=== PATIENT | male | born 1995 | race Caucasian/White ===

== ENCOUNTER 2019-12-09 11:38 | Emergency (ER) | payer OTHER ==
[~2019-12-09] VITALS: Ht 190.5 cm; Wt 86.2 kg
[2019-12-09] MEDS ORDERED: PEPCID AC20 MG PO (16:45)
[2019-12-09] MEDS ORDERED: ONDANSETRON ODT4 MG SL (16:45)
== END 2019-12-09 17:18 ==
LOC: ER 11:38
DX: B34.9 Viral infection, unspecified (principal); A90 Dengue fever [classical dengue]; Z20.828 Contact with and (suspected) exposure to other viral communicable diseases

== ENCOUNTER 2019-12-11 09:58 | Emergency (ER) | payer OTHER ==
[~2019-12-11] VITALS: Ht 190.5 cm; Wt 86.2 kg
[~2019-12-11 09:58] MED LIST: ONDANSETRON ODT4 MG SL; PEPCID AC20 MG PO
[2019-12-11] MEDS ORDERED: PEPCID AC10 MG PO (10:07)
[2019-12-11] MEDS ORDERED: ONDANSETRON ODT4 MG PO (10:08)
== END 2019-12-11 11:38 | disposition home or self-care (01) ==
LOC: ER 09:58
DX: B34.9 Viral infection, unspecified (principal)

== ENCOUNTER 2020-01-15 21:29 | Emergency (ER) | payer OTHER ==
[~2020-01-15] VITALS: Ht 190.5 cm; Wt 86.2 kg
[~2020-01-15 21:29] MED LIST changes: +ONDANSETRON ODT4 MG PO; +PEPCID AC10 MG PO
== END 2020-01-15 23:16 | disposition home or self-care (01) ==
LOC: ER 21:29
DX: R00.2 Palpitations (principal)